=== PATIENT | male | born 1970 | race Caucasian/White ===

== ENCOUNTER 2024-12-15 08:05 | Emergency (ER) | payer BC, SELFPAY ==
[2024-12-15 08:06] VITALS: BMI 61.9
[2024-12-15 08:32] VITALS: BP 162/98; PULSE 100; RESP 18; TEMP 37; O2SAT 95
--- NOTE | 2024-12-15 08:40 | PD.EDRME ---
Rapid Medical Screening Exam RME Arrival date/time: 12/15/24 08:05 54-year-old male with no known medical history presents to the emergency room with a chief complaint of tenderness, warmth, drainage to his right thigh x 3 days I have greeted and performed a focused initial assessment of this patient. A comprehensive ED assessment and evaluation of the patient, analysis of all test results, and completion of the medical decision making process will be conducted by additional ED providers. Chief Complaint: Skin/Abscess/Foreign Body Time Seen by Provider: 12/15/24 08:29 Vital signs: Vital Signs Temperature 98.6 F 12/15/24 08:32 Pulse Rate 100 12/15/24 08:32 Respiratory Rate 18 12/15/24 08:32 Blood Pressure 162/98 H 12/15/24 08:32 Pulse Oximetry (%) 95 12/15/24 08:32 Oxygen Delivery Method Room Air 12/15/24 08:32 Vital signs reviewed by provider: Yes Exam: Erythemic, rough, warmth to the touch area to the right thigh Clinical Impression: Cellulitis/abscess/folliculitis
[2024-12-15] MEDS: CEFOXITIN 2 GM in SODIUM CHLORIDE 0.9% (Popper) 50 ML IV (09:27)
[2024-12-15] MEDS: LIDOCAINE HCL 1% 20 ML VIAL INFL (09:28)
[2024-12-15] MEDS: ONDANSETRON INJ 2 MG/ML INJ 2 ML 4 MG IVP (09:29)
[2024-12-15] MEDS: KETOROLAC INJ 30 MG/ML VIAL IVP (09:29)
[2024-12-15] MEDS: MORPHINE SULF INJ 4 MG/ML VIAL IVP (09:29)
[2024-12-15 10:22] VITALS: BP 131/87; PULSE 90; RESP 18; TEMP 36.9; O2SAT 93
[2024-12-15 11:48] VITALS: BP 130/72; PULSE 90; RESP 18; TEMP 36.9; O2SAT 94
--- NOTE | 2024-12-15 12:35 | EDNOTE_ITS ---
ED Skin Abcess FB-RME/HPI General Chief complaint: Skin/Abscess/Foreign Body Stated complaint: BOIL TO RIGHT THIGH FOR 3 DAYS Time Seen by Provider: 12/15/24 08:29 Arrival date/time: 12/15/24 08:05 Limitations: no limitations RME / HPI RME / HPI narrative: 12/15/24 08:05 54-year-old male with no known medical history presents to the emergency room with a chief complaint of tenderness, warmth, drainage to his right thigh x 3 days I have greeted and performed a focused initial assessment of this patient. A comprehensive ED assessment and evaluation of the patient, analysis of all test results, and completion of the medical decision making process will be conducted by additional ED providers. DR. COLON MAIN ED EVALUATION: 54 year old male with history of hypertension presents to the ED for evaluation of an area of tenderness, swelling, redness and increased warmth to the right upper thigh beginning 3 days ago. Reports symptoms are progressively worsening and accompanied by drainage from the site. No injuries to the area. No fevers or chills. No other associated symptoms or complaints. Exam: Erythemic, rough, warmth to the touch area to the right thigh Impression: Cellulitis/abscess/folliculitis Related Data Home Medications ?Medication ?Instructions ?Recorded ?Confirmed ibuprofen 400 mg tablet 400 mg PO DAILY 03/29/23 Previous Rx's ?Medication ?Instructions ?Recorded enalapril maleate 2.5 mg tablet 2.5 mg PO QDAY #30 tab s 03/29/23 (Vasotec) cephalexin 500 mg capsule 500 mg PO Q6H 10 days #40 ca ps 12/15/24 Allergies Allergy/AdvReac Type Severity Reaction Status Date / Time No Known Allergies Allergy Verified 12/15/24 08:08 Review of Systems Review of Systems Systems Reviewed: All systems reviewed, normal except as documented Past Medical History Past Medical History CARDIAC: Positive Cardiac Disorders (hypertension); Negative Congestive Heart Failure RESPIRATORY: Negative Chronic Obstructive Pulmonary Disease (COPD) or Asthma GENITOURINARY: Negative Renal Disease ENDOCRINE: Negative Diabetes Mellitus Type 1 or Diabetes Mellitus Type 2 HEMATOLOGIC: Negative Sickle Cell Disease Social History SMOKING STATUS: Never smoker ED Exam General Limitations: Present no limitations General appearance: Present alert, in no apparent distress and obese Head Head exam: Present atraumatic Eye Eye exam: Present normal appearance and EOMI ENT ENT exam: Present normal exam, normal oropharynx and mucous membranes moist Neck Neck exam: Present normal inspection, full ROM and trachea midline Chest Chest inspection: Present normal inspection and symmetric chest wall rise Respiratory Respiratory exam: Present normal lung sounds bilaterally Cardiovascular Cardiovascular exam: Present regular rate, normal rhythm and normal heart sounds Abdominal Exam Abdominal exam: Present soft and normal bowel sounds Extremities Exam Extremities exam: Present full ROM and other (Upper medial rigth thigh with mild erythema, centrally there was an 8cm x 8cm firm indurated area, nonfluctuant with small area of oozing puss) Back Exam Back exam: Present normal inspection and full ROM Neurological Exam Neurological exam: Present alert, oriented X3 and CN II-XII intact Psychiatric Psychiatric exam: Present normal affect and normal mood Skin Skin exam: Present warm, dry, intact and normal color Course Quality Measures none Orders Category Date Time Status Insert [Insert IV] NOW Care 12/15/24 08:58 Completed Wound Culture and Gram Stain Stat Lab 12/15/24 11:44 Received Cefoxitin [Mefoxin] 2 gm Med 12/15/24 08:59 Discontinued SODIUM CHLORIDE 0.9% (Popper) [Ns 0.9% (P)] 50 ml IV X1 Ketorolac Inj [Toradol Inj] Med 12/15/24 08:59 Discontinued 30 mg IVP X1 ONE Lidocaine 1% 20 ml [Xylocaine 1% 20 ML] Med 12/15/24 08:57 Discontinued 20 ml INFL X1 ONE Morphine* Inj Med 12/15/24 08:59 Discontinued 4 mg IVP X1 ONE Ondansetron Inj [Zofran Inj] Med 12/15/24 08:59 Discontinued 4 mg IVP X1 ONE Vital Signs Vital signs: Vital Signs Temperature 98.6 F 12/15/24 08:32 Pulse Rate 100 12/15/24 08:32 Respiratory Rate 18 12/15/24 08:32 Blood Pressure 162/98 H 12/15/24 08:32 Pulse Oximetry (%) 95 12/15/24 08:32 Oxygen Delivery Method Room Air 12/15/24 08:32 Pulse ox is 95% on room air which is adequate. PROCEDURES: Abscess I/D Site: lower extremity Side (if applicable): right (thigh ) Sedation/analgesia: none Local Anesthetic: lidocaine 1% Amount of anesthesia used (mL): 10 Technique: other (incised with #15 blade) Amount of fluid expressed (mL): 10 Irrigation: Yes Packing used?: iodoform (1/4 inch ) Complications: other (No complications. Wound culture was obtained and sent to lab. ) Skin / Abscess / Foreign Body MDM Narrative MDM Narrative:: Narcisa Cho am scribing for and in the presence of Dr. Colon. Patient data External records reviewed:: [facility] previous records Clinical information provided by:: patient Social determinants that could affect healthcare access:: none Patient has the following chronic illnesses:: Hypertension How is presenting disease/condition affected by chronic disease/condition?: uneffected by Evaluation data The following diagnostics were reviewed and interpreted by me:: other (specify) (No diagnostics ordered ) Lab and/or radiology exams considered but not ordered:: None Interpretation Summary: N/A Medications / Prescriptions Medications or Prescriptions considered but not ordered:: None Medication administrations:: Medication Administration History Discontinued Medications Cefoxitin Sodium 2 gm/ Sodium (Chloride) 50 mls @ 100 mls/hr IV X1 ONE Stop: 12/15/24 09:28 Last Infusion: 12/15/24 11:06 Dose: Infused Documented By: Admin: 12/15/24 09:27 Dose: 100 mls/hr Documented By: ANTWON Ketorolac Tromethamine (Ketorolac Inj 30 Mg/Ml Vial) 30 mg IVP X1 ONE Stop: 12/15/24 09:00 Last Admin: 12/15/24 09:29 Dose: 30 mg Documented By: ANTWON Lidocaine HCl (Lidocaine Hcl 1% 20 Ml Vial) 20 ml INFL X1 ONE Stop: 12/15/24 08:58 Last Admin: 12/15/24 09:28 Dose: 20 ml Documented By: ANTWON Morphine Sulfate (Morphine Sulf Inj 4 Mg/Ml Vial) 4 mg IVP X1 ONE Stop: 12/15/24 09:00 Last Admin: 12/15/24 09:29 Dose: 4 mg Documented By: ANTWON Ondansetron HCl (Ondansetron Inj 2 Mg/Ml Inj 2 Ml) 4 mg IVP X1 ONE; Protocol Stop: 12/15/24 09:00 Last Admin: 12/15/24 09:29 Dose: 4 mg Documented By: ANTWON See above Consultations Consultation(s) initiated? (list below): No Diagnosis Skin/Abscess Differential Diagnosis: abscess of skin or subcutaneous tissue, cellulitis, insect bites and other (boil, abscess ) Most likely diagnosis given after review of the tests above:: Abscess of skin Admission Indicated Admission indicated?: not indicated Explain why admission is indicated or not indicated:: With no condition needing emergent intervention, there was no indication for admission. Admission Request Was there a request for admission?: No Disposition Plan Disposition Plan: Discharge Discharge Attestation Discharge Attestation: The patient and all family members were given an opportunity to ask questions and understood the discharge instructions. Discharge instructions specifically effects, indications for sooner follow up or return to the emergency department, and the expected course of current diagnosis. Patient condition: Stable Discharge Plan Plan Patient Disposition: HOME (Self Care) Patient condition on transfer: Stable Prescriptions/Referrals Prescriptions/Med Rec: New cephalexin 500 mg capsule 500 mg PO Q6H 10 Days Qty: 40 0RF No Action ibuprofen 400 mg Tablet 400 mg PO DAILY enalapril maleate [Vasotec] 2.5 mg tablet 2.5 mg PO QDAY Qty: 30 0RF Referrals: No Primary/Family,Physician [Primary Care Provider] - In 1 week Problem List Clinical Impression: Abscess of skin or subcutaneous tissue Patient/Caregiver Discharge Instructions Discharge Activity: activity as tolerated Education Materials: ED Abscess Antibiotic ..., ED Abscess, Incision And Drainage Additional Instructions: Rest for 2 to 3 days. Change her dressing daily. See your doctor in 2 days or return to the emergency department to check your abscess wound and decide if we need to change the packing. Take Tylenol 500 mg 1-2 every 6 hours along with Advil gelcaps 200 mg 2 capsules every 6 hours for pain. You can take these 2 medications together. Print Language: Surinamese Stand Alone Forms: Deborah Award Info., Patient Portal Info Letter
== END 2024-12-15 11:45 | disposition home or self-care (01) ==
PROVIDERS: Emergency Provider Family Medicine
DX: L02.415 Cutaneous abscess of right lower limb (principal); I10 Essential (primary) hypertension
CPT/HCPCS: 10060; 87070; 87077; 87186; 87205; 96365; 96366; 96374; 96375; 99283; J0694; J1885; J2270; J2405; J3490; J7050

== ENCOUNTER 2024-12-18 08:39 | Inpatient (IN) | payer BC, SELFPAY ==
[2024-12-18] VITALS (8 sets, daily range): BP systolic 156–180; BP diastolic 94–111; PULSE 77–86; RESP 18–97; TEMP 36.4–36.7; O2SAT 97–99; BMI 61.9; BMI 56.0
--- NOTE | 2024-12-18 09:03 | XR_ITS ---
Examination: CT abdomen with intravenous contrast CT pelvis with intravenous contrast 2-D coronal reconstructions 2-D sagittal reconstructions Date and time of exam: December 18, 2024, 1122 hours INDICATIONS: Redness swelling and pain involving the thigh and lower abdomen beginning 3 days ago. CTDI: vol (mGy) 27.6 DLP: (mGycm) 2171 Technique: Multiple axial sections of the abdomen and pelvis have been obtained. 64 slice high-resolution scanner used. 3 mm axial sections have been obtained, post intravenous injection 60 cc [id number] 2-D sagittal, coronal reconstructions obtained. Low dose protocols were performed. One or more of the following dose reduction techniques were used; automated exposure control, adjustment of the mA and/or KV according to patient size, use of iterative reconstruction technique. Findings: 4 mm pulmonary nodule right lower lobe Large retrocardiac gastric hernia 8 mm liver cyst Fatty infiltration throughout the liver No gallstones Spleen is not enlarged No peripancreatic edema No hydronephrosis or renal calculi Aorta normal size No pericecal inflammatory change No bowel obstruction No prostatomegaly Bladder intact Air-fluid collection poorly defined margins medial right thigh, 24 mm in thickness, AP dimension 9.2 cm, cephalocaudad dimension 13 cm IMPRESSION: Soft tissue focus of infection in the medial upper right thigh, 9.2 x 2.4 x 13 cm
--- NOTE | 2024-12-18 09:04 | PD.EDRME ---
Rapid Medical Screening Exam [facility], [facility] Arrival date/time: 12/18/24 08:39 54-year-old male with no known medical history presents to the emergency room with a chief complaint of multiple abscesses to his right thigh. Patient was seen here last week in the emergency room and had one of the abscesses drained. Patient states that multiple different abscesses have now formed in the same area. I have greeted and performed a focused initial assessment of this patient. A comprehensive ED assessment and evaluation of the patient, analysis of all test results, and completion of the medical decision making process will be conducted by additional ED providers. Chief Complaint: Skin/Abscess/Foreign Body Time Seen by Provider: 12/18/24 08:42 Vital signs: Vital Signs Temperature 98 F 12/18/24 08:48 Pulse Rate 86 12/18/24 08:48 Respiratory Rate 18 12/18/24 08:48 Blood Pressure 167/94 H 12/18/24 08:48 Pulse Oximetry (%) 99 12/18/24 08:48 Oxygen Delivery Method Room Air 12/18/24 08:48 Vital signs reviewed by provider: Yes Exam: Right thigh erythema, induration, warmth, roughness. GCS 15 and oriented x 3 Clinical Impression: Cellulitis/abscess of skin or subcutaneous tissue
[2024-12-18 09:24] LABS: Basophils # (Auto) 0.1 Thou/mm3 (0.0-0.2); Basophils % (Auto) 1 % (0-2.5); Eosinophils # (Auto) 0.3 Thou/mm3 (0.0-0.5); Eosinophils % (Auto) 3 % (0-10); Hematocrit 44.8 % (41.0-53.0); Hemoglobin 15.6 g/dL (13.5-16.0); Immature Granulocytes Auto 0.16 Thou/mm3 (0.00-0.00); Lymphocytes # (Auto) 1.5 Thou/mm3 (1.0-4.8); Lymphocytes % (Auto) 15 % (10-50); Mean Corpuscular HGB Conc 34.8 g/dl (31.0-37.0); Mean Corpuscular Hemoglobin 29.4 pg (25.0-35.0); Mean Corpuscular Volume 85 fL (80-100); Monocytes # (Auto) 0.8 Thou/mm3 (0.0-0.8); Monocytes % (Auto) 8 % (0-12); Neutrophils # (Auto) 7.1 Thou/mm3 (1.8-7.7); Neutrophils % (Auto) 72 % (37-80); Nucleated Red Blood Cell # 0.00 Thou/mm3 (0.00-0.00); Nucleated Red Blood Cell % 0 /100 WBC (0); Platelet Count 320 Thou/mm3 (140-440); RDW Standard Deviation 36.5 fL (35.1-43.9); Red Blood Count 5.30 Miln/mm3 (4.50-5.90); White Blood Count 9.9 Thou/mm3 (3.8-10.6)
[2024-12-18 09:52] LABS: Alanine Aminotransferase 24 U/L (10-49); Albumin, Serum 4.1 gm/dL (3.5-5.0); Albumin/Globulin Ratio 1.6 (1.2-2.2); Alkaline Phosphatase 120 U/L (46-116); Anion Gap 7 (7-16); Aspartate Amino Transferase 19 U/L (0-34); BUN/Creatinine Ratio 14 Ratio (12-20); Bilirubin,Total 0.5 mg/dL (0.3-1.2); Blood Urea Nitrogen 11 mg/dL (9-23); Calcium 9.2 mg/dL (8.3-10.6); Calcium (Corrected) 9.2 mg/dL (8.5-10.1); Carbon Dioxide 32.7 mMol/L (20.0-31.0); Chloride 94 mMol/L (98-107); Creatinine (Component) 0.8 mg/dL (0.6-1.3); Estimated Creatinine Clearance 203.5 mL/min (>60); Globulin 2.6 gm/dL (2.3-3.5); Lipase 31 U/L (12-53); Osmolality,Calculated 287 (275-295); Potassium 3.9 mMol/L (3.4-5.1); Sodium 134 mMol/L (136-145); Total Protein 6.7 gm/dL (5.7-8.2); eGFR > 60 See Note
[2024-12-18 10:06] LABS: Collection Type, Urine Clean Catch; WBC,Urine 0 /hpf (0-5)
[2024-12-18 10:32] LABS: Bilirubin,Urine Negative (Negative); Blood,Urine Negative (Negative); Clarity,Urine Clear (Clear/Hazy); Color,Urine Lt-Yellow (Lt Yel-Yel); Glucose, Urine 4+ (Negative); Ketones,Urine 1+ (Negative); Leukocyte Esterase,Urine Negative (Negative); Nitrite,Urine Negative (Negative); PH,Urine 6.5 (5.0-7.0); Protein,Urine Negative (Neg - Trace); RBC,Urine 3 /hpf (0-3); Specific Gravity,Urine 1.040 (1.001-1.035); Squamous Epithelial Cell,Urine 1 /hpf (0-5); Urobilinogen,Urine Negative mg/dL (0.0-1.0)
[2024-12-18 10:39] LABS: Glucose 466 mg/dL (74-106)
--- NOTE | 2024-12-18 13:28 | PC.NURSE ---
Pt. to bed 11, pt. here from home for abscess to inside right upper thigh X 1 week, pt. states he went to work this morning and sat on a stool pt. states then he heard a pop and he states abscess drained all over the floor, pt. states he cleaned it up went home and cleaned up and then came here. Pt. states abscess is painful. No s/s of distress.
[2024-12-18] MEDS: IBUPROFEN TAB 600 MG TABLET PO (16:12)
--- NOTE | 2024-12-18 16:35 | PC.NURSE ---
[place] resident who is working with Dr. Chirinos is bedside talking to pt.
[2024-12-18] MEDS: MORPHINE SULF INJ 4 MG/ML VIAL IVP (16:54)
--- NOTE | 2024-12-18 16:59 | PC.NURSE ---
Dr. Chirinos is bedside and [place] resident to do I&D on pt. right upper inner thigh.
--- NOTE | 2024-12-18 17:30 | PD.SURCONS ---
HPI Consult details History of present illness: 54M with HTN, DMII, morbid obesity presenting with R thigh abscess. Pt reports feeling pain to the area for the past few days, he underwent bedside I&D in ER on 12/15 and was also given PO antibiotics which he is still taking. Today at work he noticed increased drainage onto his pants prompting him to seek care again in ER where CT showed a fluid collection up to 13cm Review of Systems Review of Systems ROS Unobtainable: All systems reviewed & no additional complaints except as documented Meds Home Medications and Allergies Home Medications ?Medication ?Instructions ?Recorded ?Confirmed ?Type ibuprofen 400 mg tablet 400 mg PO DAILY 03/29/23 03/29/23 History Allergies Allergy/AdvReac Type Severity Reaction Status Date / Time No Known Allergies Allergy Verified 12/18/24 08:42 Exam Vital Signs Temp Pulse Resp BP Pulse Ox O2 Del Method 97.9 F 81 20 180/103 H 98 Room Air 12/18/24 16:34 12/18/24 16:34 12/18/24 16:34 12/18/24 16:34 12/18/24 16:34 12/18/24 16:34 Constitutional Constitutional: no acute distress Routine Respiratory Exam Respiratory: Present no resp distress Routine Extremities Exam Comments: right medial thigh induration, the previously made incision is visualized and thin yellow fluid is expressed when palpated Results Results: Laboratory Laboratory results: results reviewed Results: Imaging Imaging narrative: CT reviewed Assessment & Plan Plan 54M with HTN, DMII, morbid obesity presenting with R thigh abscess s/p I&D in ER on 12/15. As it is already draining what looks like pus and pt states he tolerated bedside I&D very well, I will attempt to extend the incision and probe it at bedside to allow for further drainage. I explained that the collection does look somewhat deep on CT so that if I do not express more pus with this procedure I would recommend requesting IR evaluation for possible percutaneous drainage. Pt expressed understanding and is agreeable with this plan
--- NOTE | 2024-12-18 17:34 | PD.EDSKIN ---
ED Skin Abcess FB-RME/HPI General Chief complaint: Skin/Abscess/Foreign Body Stated complaint: ANOTHER ABCESS RIGHT THIGH x 3 DAYS Time Seen by Provider: 12/18/24 08:42 Arrival date/time: 12/18/24 08:39 RME / HPI RME / HPI narrative: 12/18/24 08:39 54-year-old male with no known medical history presents to the emergency room with a chief complaint of multiple abscesses to his right thigh. Patient was seen here last week in the emergency room and had one of the abscesses drained. Patient states that multiple different abscesses have now formed in the same area. I have greeted and performed a focused initial assessment of this patient. A comprehensive ED assessment and evaluation of the patient, analysis of all test results, and completion of the medical decision making process will be conducted by additional ED providers. DR. LEDEZMA MAIN ED EVALUATION 54 year old male with history of hypertension and poorly controlled diabetes presents to the ED for evaluation of right inner thigh drainage. Patient states 6 days ago he noted tenderness, swelling, redness and increased warmth to the right upper thigh and evaluated here. States in the ED he had an abscess drained and discharged home with antibiotics. Reportedly has taken the antibiotics. States today while at work he sat on a barstool and while doing so noted to have drainage from a new area on the right thigh, prompting return to ED. No fevers or chills. No other associated symptoms or complaints. Exam: Right thigh erythema, induration, warmth, roughness. GCS 15 and oriented x 3 Impression: Cellulitis/abscess of skin or subcutaneous tissue Related Data Home Medications ?Medication ?Instructions ?Recorded ?Confirmed ibuprofen 400 mg tablet 400 mg PO DAILY 03/29/23 03/29/23 Previous Rx's ?Medication ?Instructions ?Recorded enalapril maleate 2.5 mg tablet 2.5 mg PO QDAY #30 tabs 03/29/23 (Vasotec) cephalexin 500 mg capsule 500 mg PO Q6H 10 days #40 caps 12/15/24 Allergies Allergy/AdvReac Type Severity Reaction Status Date / Time No Known Allergies Allergy Verified 12/18/24 08:42 Review of Systems Review of Systems Systems Reviewed: All systems reviewed, normal except as documented Past Medical History Past Medical History CARDIAC: Negative Cardiac Disorders or Congestive Heart Failure RESPIRATORY: Negative Chronic Obstructive Pulmonary Disease (COPD) or Asthma GENITOURINARY: Negative Renal Disease ENDOCRINE: Negative Diabetes Mellitus Type 1 or Diabetes Mellitus Type 2 HEMATOLOGIC: Negative Sickle Cell Disease Social History SMOKING STATUS: Never smoker ED Exam Narrative Physical exam: GENERAL APPEARANCE:? alert and oriented x 4, well-developed, well-nourished, no acute distress HEENT: normocephalic, atraumatic NECK: supple LUNGS: no respiratory distress, normal effort HEART: good peripheral perfusion ABDOMEN: non distended EXTREMITIES: The inner right thigh with induration, redness, tenderness, multiple areas of abscess's NEUROLOGIC: awake; alert and oriented x4; cranial nerves II-XII grossly intact PSYCHIATRIC:? appropriate mood and affect SKIN: warm, dry, normal color; no rashes Course Course Course Narrative: I spoke with surgeon Dr. Chirinos who states she will come evaluate the patient in the ED. Surgeon Dr. Hodges evaluated the patient in the ED and states she will try and open the abscess here. RN reports surgeon Dr. Chirinos attempted to drain the abscess though unable to. I spoke with Dr. Chirinos who is requesting admission to hospitalist team and have IR place a drain. She agrees to consult. I spoke with hospitalist team A for admission. Quality Measures none Orders Category Date Time Status CT Screening NOW Care 12/18/24 09:[address] abdomen pelvis w con Stat Exams 12/18/24 09:03 Completed CBC Stat Lab 12/18/24 09:07 Completed CMP [Comprehensive Metabolic Panel] Stat Lab 12/18/24 09:07 Completed Lipase Stat Lab 12/18/24 09:07 Completed UA [Urinalysis] Stat Lab 12/18/24 09:51 Completed Doxycycline [Vibramycin] Med 12/18/24 15:54 Discontinued 100 mg PO X1 ONE Ibuprofen Tab [Motrin Tab] Med 12/18/24 15:53 Discontinued 600 mg PO X1 ONE Morphine* Inj Med 12/18/24 16:47 Discontinued 4 mg IVP X1 ONE Vital Signs Vital signs: Vital Signs Temperature 98 F 12/18/24 08:48 Pulse Rate 86 12/18/24 08:48 Respiratory Rate 18 12/18/24 08:48 Blood Pressure 167/94 H 12/18/24 08:48 Pulse Oximetry (%) 99 12/18/24 08:48 Oxygen Delivery Method Room Air 12/18/24 08:48 Pulse ox is 99% on room air which is adequate. Skin / Abscess / Foreign Body MDM Narrative MDM Narrative:: Narcisa Cho, antelmo scribing for and in the presence of Dr. Ledezma. Patient data External records reviewed:: [facility] previous records Clinical information provided by:: patient Social determinants that could affect healthcare access:: none Patient has the following chronic illnesses:: Poorly controlled diabetes How is presenting disease/condition affected by chronic disease/condition?: exacerbated by Evaluation data The following diagnostics were reviewed and interpreted by me:: lab results and radiology exam(s) Lab and/or radiology exams considered but not ordered:: None Interpretation Summary: Ordering Physician: Freddie Brasher Date of Service: 12/18/24 Procedure(s): CT abdomen pelvis w con Accession Number(s): [id number] cc: Freddie Brasher; Galindo Gonzalez MD; NO PRIMARY/FAMILY,PHYSICIAN~ Examination: CT abdomen with intravenous contrast CT pelvis with intravenous contrast 2-D coronal reconstructions 2-D sagittal reconstructions Date and time of exam: December 18, 2024, 1122 hours INDICATIONS: Redness swelling and pain involving the thigh and lower abdomen beginning 3 days ago. CTDI: vol (mGy) 27.6 DLP: (mGycm) 2171 Technique: Multiple axial sections of the abdomen and pelvis have been obtained. 64 slice high-resolution scanner used. 3 mm axial sections have been obtained, post intravenous injection 60 cc [id number] 2-D sagittal, coronal reconstructions obtained. Low dose protocols were performed. One or more of the following dose reduction techniques were used; automated exposure control, adjustment of the mA and/or KV according to patient size, use of iterative reconstruction technique. Findings: 4 mm pulmonary nodule right lower lobe Large retrocardiac gastric hernia 8 mm liver cyst Fatty infiltration throughout the liver No gallstones Spleen is not enlarged No peripancreatic edema No hydronephrosis or renal calculi Aorta normal size No pericecal inflammatory change No bowel obstruction No prostatomegaly Bladder intact Air-fluid collection poorly defined margins medial right thigh, 24 mm in thickness, AP dimension 9.2 cm, cephalocaudad dimension 13 cm IMPRESSION: Soft tissue focus of infection in the medial upper right thigh, 9.2 x 2.4 x 13 cm Dictated By: Galindo Gonzalez MD Signed By: <Electronically signed by Galindo Gonzalez MD in OV> 12/18/24 1148 Medications / Prescriptions Medications or Prescriptions considered but not ordered:: None Medication administrations:: Medication Administration History Discontinued Medications Doxycycline Hyclate (Doxycycline 100 Mg Tablet) 100 mg PO X1 ONE Stop: 12/18/24 15:55 Last Admin: 12/18/24 16:35 Dose: Not Given Documented By: ARF Non-Admin Reason: Discontinued Ibuprofen (Ibuprofen Tab 600 Mg Tablet) 600 mg PO X1 ONE Stop: 12/18/24 15:54 Last Admin: 12/18/24 16:12 Dose: 600 mg Documented By: ARF Morphine Sulfate (Morphine Sulf Inj 4 Mg/Ml Vial) 4 mg IVP X1 ONE Stop: 12/18/24 16:48 Last Admin: 12/18/24 16:54 Dose: 4 mg Documented By: ED See above Consultations Consultation(s) initiated? (list below): Yes Consultation #1 (Physician, Specialty, Details): See course Diagnosis Skin/Abscess Differential Diagnosis: abscess of skin or subcutaneous tissue, cellulitis and insect bites Most likely diagnosis given after review of the tests above:: Abscess of right inner thigh Cellulitis Admission Indicated Admission indicated?: indicated Admission Request Was there a request for admission?: Yes Admission Attestation Admission request attestation: Discussed case with [] from Hospitalist service regarding admission. Discussed patients ED course, exam findings, labs, and radiology results. The Hospitalist [agrees,declines] to accept the patient for admission. Disposition Plan Disposition Plan: Admit Discharge Plan Plan Patient Disposition: Admit Acute Care w/in Hospital Prescriptions/Referrals Prescriptions/Med Rec: No Action ibuprofen 400 mg Tablet 400 mg PO DAILY enalapril maleate [Vasotec] 2.5 mg tablet 2.5 mg PO QDAY Qty: 30 0RF cephalexin 500 mg capsule 500 mg PO Q6H 10 Days Qty: 40 0RF Referrals: No Primary/Family,Physician [Primary Care Provider] - In 1 week Problem List Clinical Impression: Cellulitis, Abscess of right thigh Patient/Caregiver Discharge Instructions Print Language: Beninese Stand Alone Forms: Deborah Award Info., Patient Portal Info Letter
--- NOTE | 2024-12-18 17:36 | PD.SURPROC ---
PROCEDURES: Procedure Comment Procedure Comment: Informed consent obtained Pt premedicated with morphine 4mg IV Timeout performed Previous RLE thigh incision extended medially with #11 blade Blood returned, wound probed with no expression of pus Wound packed for hemostasis and covered with gauze and abdominal pad Will recommend IR evaluation for possible percutaneous drainage if accessible Abscess I/D Site: lower extremity Side (if applicable): right Sedation/analgesia: other (Morphine 4mg) Technique: incised with #11 blade (Previous incision extended medially with #11 blade) Amount of fluid (mL): 10 Irrigation: Yes Packing used?: plain
--- NOTE | 2024-12-18 18:07 | ESHP_ITS ---
<Statement entered by Paresh Mariscal MD - 01/01/25 15:18> I reviewed above note and agree with findings and plans. I have also personally examined the patient with medicine team and went over assessment and plan with medical team including pr internship and resident physician. Documentation for date of: 12/18/24 HPI History of Present Illness Chief complaint: Right leg pain and drainage x 1 week History of present illness: Patient is a 54-year-old male with past medical history of hypertension who presented to the ED on 12/18/2024 with right upper leg tenderness, warmth, and drainage which the patient states he first noticed about 1 week ago. He denies any known trauma, cuts, or injuries to the leg to cause the wound. 3 days ago, the patient came to the ED and provider performed a bedside I&D with 10 ml fluid expressed. Abscess culture from that time grew pansensitive strep agalactiae. Patient was prescribed a 10-day course of cephalexin and he has been taking it since the visit Wednesday. However today when he went to work he noticed that the abscess seemed to burst and have significant drainage while seated. Patient then came to the hospital. He reports subjective fevers last week but not in the last few days. He denies any other symptoms. Patient does not have a PCP and has not seen a doctor in 3 years. He denies any prior medical history. ED Course: -Initial vitals were 167/94, HR 86, RR 18, Temp 98, 99% on room air -Labs significant for glucose 466, hyperglycemic hyponatremia 134, chloride 94, CO2 32.7, mildly elevated alk phos 120 -UA showed 4+ glucose, 1+ ketones, negative for leukocyte esterase -CT abdomen/pelvis with contrast showed soft tissue focus of infection in the medial upper right thigh, 9.2 x 2.4 x 13 cm -In the ED, patient was given ibuprofen 600 mg PO x1, morphine 4 mg IV x1 -General surgery Dr. Chirinos was consulted and attempted bedside debridement however abscess seemed too deep to express any pus, recommended IR evaluation and percutaneous drainage -Patient was admitted for further IR and possible surgical drainage of the right upper leg abscess Review of Systems Review of systems otherwise negative except what is mentioned above. Past Medical History Past Medical History Comments PMH COMMENT: Past Medical History: None reported Family History: Positive for family history of diabetes Surgical History: None Social History: Denies history of smoking, denies current alcohol use, denies recreational drug use. Lives alone. Current Medications: None (Source: Patient) Allergies: No known drug allergies Exam Vital Signs Temp Pulse Resp BP Pulse Ox O2 Del Method 97.9 F 81 20 180/103 H 98 Room Air 12/18/24 16:34 12/18/24 16:34 12/18/24 16:34 12/18/24 16:34 12/18/24 16:34 12/18/24 16:34 Narrative Exam Physical Exam General: Awake and in no acute distress. Conversational and non-toxic appearing. HEENT: Normocephalic, atraumatic, mucous membranes moist. Heart: Regular rate and rhythm, normal S1 and S2, no murmurs. Lungs: Clear to auscultation with no wheezing or crackles. Abdomen: Morbidly obese, soft, nondistended, nontender, positive bowel sounds. ?No guarding or rebound tenderness. Neurologic: Alert and oriented x3, no gross neurological deficit, and patient able to move all 4 extremities. Extremities: Indurated and erythematous area of skin medial right upper leg, lumpy, central area with dry blood where drainage attempted Skin: No rash or ecchymoses. Results: Labs 12/19/24 04:39 12/19/24 04:39 Labs: Short CBC 12/18/24 Range/Units 09:07 WBC 9.9 (3.8-10.6) Thou/mm3 Hgb 15.6 (13.5-16.0) g/dL Hct 44.8 (41.0-53.0) % Plt Count 320 (140-440) Thou/mm3 BMP 12/18/24 09:07 Sodium 134 L Potassium 3.9 Chloride 94 L Carbon Dioxide 32.7 H BUN 11 Creatinine 0.8 Glucose 466 H* Calcium 9.2 Liver Function 12/18/24 Range/Units 09:07 Total Bilirubin 0.5 (0.3-1.2) mg/dL AST 19 (0-34) U/L ALT 24 (10-49) U/L Alkaline Phosphatase 120 H (46-116) U/L Albumin 4.1 (3.5-5.0) gm/dL Urine 12/18/24 Range/Units 09:51 Urine Color Lt-Yellow (Lt Yel-Yel) Urine Clarity Clear (Clear/Hazy) Urine pH 6.5 (5.0-7.0) Ur Specific Pringle 1.040 H (1.001-1.035) Urine Protein Negative (Neg - Trace) Urine Glucose (UA) 4+ A (Negative) Quality Measures Quality Measures none Medications Home Medications and Allergies Home Medications ?Medication ?Instructions ?Recorded ?Confirmed ?Type ibuprofen 400 mg tablet 400 mg PO DAILY 03/29/23 History Allergies Allergy/AdvReac Type Severity Reaction Status Date / Time No Known Allergies Allergy Verified 12/18/24 08:42 Visit Medications Discontinued Medications Doxycycline Hyclate (Doxycycline 100 Mg Tablet) 100 mg PO X1 ONE Stop: 12/18/24 15:55 Last Admin: 12/18/24 16:35 Dose: Not Given Ibuprofen (Ibuprofen Tab 600 Mg Tablet) 600 mg PO X1 ONE Stop: 12/18/24 15:54 Last Admin: 12/18/24 16:12 Dose: 600 mg Morphine Sulfate (Morphine Sulf Inj 4 Mg/Ml Vial) 4 mg IVP X1 ONE Stop: 12/18/24 16:48 Last Admin: 12/18/24 16:54 Dose: 4 mg Assessment & Plan Plan 54-year-old male with past medical history of hypertension who presented to the ED on 12/18/2024 with right upper leg tenderness, warmth, and drainage which the patient states he first noticed about 1 week ago, found to have right upper leg abscess which was not fully draining with bedside I&D, patient was admitted for IR management and possible further surgical debridement. #Right leg abscess Patient presented with non-healing right upper leg wound, which is hard, erythematous, and tender. Patient is morbidly obese and also found to have severe hyperglycemia, likely non-healing wound in the setting of uncontrolled diabetes. CT abdomen/pelvis with contrast showed soft tissue focus of infection in the medial upper right thigh, 9.2 x 2.4 x 13 cm. -General surgery consulted and following -Wound care consulted -IR abscess drainage scheduled for 12/19 morning -NPO after midnight -Started Zosyn 3.375 mg q6h -Started vancomycin pharmacy to dose -Pain management: Tylenol for mild pain, [place] for moderate pain, morphine for severe pain #Hyperglycemia #Newly diagnosed type 2 diabetes On admission initial glucose 466. A1c pending. Last one taken 6.4 in 2019. Patient does not have known history of diabetes. -Bedside blood glucose checks ACHS -Insulin lispro sliding scale step 1, adjusted as necessary -Insulin degludec 10 U HS starting now -Carb consistent low diet -Consulted lead installer -Diabetes education -A1c pending #Hypertension Likely essential hypertension, patient not on medications. On admission BP 180/103 -Started losartan 25 mg qday DVT prophylaxis: Lovenox 40 mg subQ GI prophylaxis: Not indicated Diet: Carb consistent low Mead: None Lines: Peripheral IV Antibiotics: Zosyn [12/18/2024- ], vancomycin [12/18/2024- ] CODE STATUS: FULL Reason for hospitalization: Patient plan of care was discussed with the attending physician, Dr. Mariscal. Veronika Henley, PGY-3
[2024-12-18 19:34] LABS: Glucose Estimated Average 306 mg/dL (80-131); Hemoglobin A1C 12.3 % Hgb (4.8-6.0)
[2024-12-18 19:39] LABS: Cardiac Risk Estimate 6.6 RATIO (4.0-6.7); Cholesterol 158 mg/dL (132-200); HDL Cholesterol 24 mg/dL (40-60); LDL Cholesterol,Calculated 104 mg/dL (0-130); Triglycerides 150 mg/dL (30-150)
[2024-12-18] MEDS: LOSARTAN POTASSIUM 25 MG TABLET PO (19:44)
[2024-12-18] MEDS: PIPER/TAZO 3.375 GM PREMIX 3.375 GM/50 ML BAG IV (19:45)
[2024-12-18] MEDS: INSULIN DEGLUDEC 5 UNIT/0.05 ML (PER 5 UNITS) 10 UNIT SC (19:47)
[2024-12-18] MEDS: INSULIN LISPRO (AdmeLOG) 1 UNIT/0.01 ML UNIT SC (19:50)
[2024-12-18] MEDS: Vancomycin Inj 2,000 MG in SODIUM CHLORIDE 0.9% 500 ML 500 ML 150 MG IV (20:25)
[2024-12-19] VITALS (10 sets, daily range): BP systolic 150–190; BP diastolic 90–120; PULSE 58–88; RESP 18–92; TEMP 36–36.8; O2SAT 92–95; BMI 56.3
[2024-12-19] MEDS: INSULIN LISPRO (AdmeLOG) 1 UNIT/0.01 ML UNIT SC ×5 (00:08→23:44)
[2024-12-19] MEDS: PIPER/TAZO 3.375 GM PREMIX 3.375 GM/50 ML BAG IV ×4 (00:12→17:43)
[2024-12-19 05:51] LABS: Basophils # (Auto) 0.1 Thou/mm3 (0.0-0.2); Basophils % (Auto) 1 % (0-2.5); Eosinophils # (Auto) 0.3 Thou/mm3 (0.0-0.5); Eosinophils % (Auto) 3 % (0-10); Hematocrit 41.1 % (41.0-53.0); Hemoglobin 13.9 g/dL (13.5-16.0); Immature Granulocytes Auto 0.21 Thou/mm3 (0.00-0.00); Lymphocytes # (Auto) 1.9 Thou/mm3 (1.0-4.8); Lymphocytes % (Auto) 21 % (10-50); Mean Corpuscular HGB Conc 33.8 g/dl (31.0-37.0); Mean Corpuscular Hemoglobin 29.2 pg (25.0-35.0); Mean Corpuscular Volume 86 fL (80-100); Monocytes # (Auto) 1.0 Thou/mm3 (0.0-0.8); Monocytes % (Auto) 11 % (0-12); Neutrophils # (Auto) 5.3 Thou/mm3 (1.8-7.7); Neutrophils % (Auto) 61 % (37-80); Nucleated Red Blood Cell # 0.00 Thou/mm3 (0.00-0.00); Nucleated Red Blood Cell % 0 /100 WBC (0); Platelet Count 320 Thou/mm3 (140-440); RDW Standard Deviation 37.3 fL (35.1-43.9); Red Blood Count 4.76 Miln/mm3 (4.50-5.90); White Blood Count 8.8 Thou/mm3 (3.8-10.6)
[2024-12-19 06:19] LABS: Alanine Aminotransferase 21 U/L (10-49); Albumin, Serum 3.7 gm/dL (3.5-5.0); Albumin/Globulin Ratio 1.6 (1.2-2.2); Alkaline Phosphatase 84 U/L (46-116); Anion Gap 7 (7-16); Aspartate Amino Transferase 16 U/L (0-34); BUN/Creatinine Ratio 10 Ratio (12-20); Bilirubin,Total 0.4 mg/dL (0.3-1.2); Blood Urea Nitrogen 8 mg/dL (9-23); Calcium 8.9 mg/dL (8.3-10.6); Calcium (Corrected) 9.1 mg/dL (8.5-10.1); Carbon Dioxide 33.9 mMol/L (20.0-31.0); Chloride 97 mMol/L (98-107); Creatinine (Component) 0.8 mg/dL (0.6-1.3); Estimated Creatinine Clearance 191.1 mL/min (>60); Globulin 2.3 gm/dL (2.3-3.5); Glucose 282 mg/dL (74-106); Magnesium 1.5 mg/dL (1.6-2.6); Osmolality,Calculated 283 (275-295); Phosphorous 4.4 mg/dL (2.4-5.1); Potassium 4.1 mMol/L (3.4-5.1); Sodium 138 mMol/L (136-145); Total Protein 6.0 gm/dL (5.7-8.2); eGFR > 60 See Note
--- NOTE | 2024-12-19 07:54 | ECHO_ITS ---
Patient Info Name: Jackelin Zuniga Age: 54 years : 1970 Gender: Male Ht: 185 cm Wt: 193 kg BSA: 3.26 m2 BP: 173 / 90 mmHg HR: 77 bpm Exam Date: 12/19/2024 11:03 AM Admit Date: 12/18/2024 Site: [facility] Room Number: 365 Patient Status: I Exam Type: CA echo doppler complete Political Geographer: Kathie Aguillon Ordering Physician: Aguilar Person Study Info Indications r/o hf - Primary Location: [id number] Left Ventricular Outflow Tract Name Value Normal LVOT 2D LVOT Diameter 2.0 cm LVOT Doppler LVOT Peak Velocity 96 cm/s LVOT Mean Gradient 2 mmHg LVOT VTI 22 cm LVOT VTI/AV VTI Ratio 1.1 LVOT Stroke Volume 70 ml Pulmonic Valve Name Value Normal PV Doppler PV Peak Velocity 119 cm/s Mitral Valve Name Value Normal MV Doppler MV Decel Dare 390 cm/s2 MV PHT 58 ms MV Area (PHT) 3.8 cm2 4.0-5.0 MV Diastolic Function MV E Peak Velocity 78 cm/s MV A Peak Velocity 73 cm/s MV E/A 1.1 MV Annular TDI MV Lateral e' Velocity 10.4 cm/s MV E/e' (Lateral) 7.5 Tricuspid Valve Name Value Normal TV Regurgitation Doppler TR Peak Velocity 170 cm/s Estimated PAP/RSVP RA Pressure 8 mmHg <=5 PA Systolic Pressure 20 mmHg <36 RV Systolic Pressure 20 mmHg <36 Aortic Valve Name Value Normal AV 2D/MM AV Cusp Sep (MM) 1.4 cm AV Doppler AV Peak Velocity 119 cm/s AV Mean Gradient 4 mmHg AV VTI 21 cm AV Area (Cont Eq VTI) 3.4 cm2 >=3.0 AV Area (Cont Eq Emanuel) 2.5 cm2 AV DI (Emanuel) 0.81 AV Regurgitation 2D LVOT Area 3.1 cm2 Ventricles Name Value Normal LV Dimensions 2D/MM IVS Diastolic Thickness (2D) 1.1 cm 0.6-1.0 LVID Diastole (2D) 5.3 cm 4.2-5.8 LVIW Diastolic Thickness (2D) 1.2 cm 0.6-1.0 LVID Systole (2D) 3.4 cm 2.5-4.0 LVOT Diameter 2.0 cm LV Mass (2D Cubed) 241.96 g 88.00-224.00 LV Mass Index (2D Cubed) 74 g/m2 49-115 Relative Wall Thickness (2D) 0.45 <=0.42 IVS/LVIW Diastolic Thickness (2D) 0.92 0.00-1.50 LV Fractional Shortening/Ejection Fraction 2D/MM LV Fractional Shortening (2D) 36 % 25-43 LV EF (2D Teichholz) 65 % Atria Name Value Normal LA Dimensions LA Volume (4C A-L) 96 ml Left Ventricle Left ventricular chamber dimension is normal. Left ventricular systolic function is normal with visually estimated ejection fraction of 55-60%. There is mild concentric hypertrophy noted in the left ventricle. Left ventricular segmental wall motion is normal. There is grade I diastolic dysfunction in the left ventricle. Right Ventricle Right ventricular chamber dimension is normal. Right ventricular systolic function is normal. Left Atrium Left atrial chamber dimension is mildly enlarged. Right Atrium Right atrial chamber dimension is normal. Aortic Valve The aortic valve is trileaflet. There is no aortic valve sclerosis. There is no aortic valve stenosis with a peak velocity of 119 cm/s, mean gradient of 4 mmHg, and aortic valve area of 3.4 cm2. There is no aortic valve regurgitation. Pulmonic Valve The pulmonic valve is normal. There is no pulmonic valve stenosis. There is no pulmonic regurgitation. Mitral Valve The mitral valve has normal leaflets. There is no mitral valve stenosis. There is trace mitral valve regurgitation. Tricuspid Valve The tricuspid valve leaflets are normal. There is no tricuspid valve stenosis. There is trace tricuspid valve regurgitation. No pulmonary hypertension, estimated pulmonary arterial systolic pressure is 20 mmHg and systemic blood pressure of 173 mmHg in systole. Pericardium/Pleural The pericardium appears normal. There is no pericardial effusion. No pleural effusion visualized. Inferior Vena Cava Not well visualized inferior vena cava with >50% collapse upon inspiration consistent with normal right atrial pressure, 8 mmHg. Aorta The aortic measurements are indexed to age and body surface area. The aortic root at the sinus of Valsalva is not well visualized. The prox ascending aorta is not well visualized. Summary 1. Left ventricle size is normal and systolic function is normal. Estimated ejection fraction is 55-60%. There is grade I diastolic dysfunction. There is mild concentric hypertrophy noted. 2. Right ventricle chamber size is normal and systolic function is normal. Estimated RVSP is 20 mmHg. 3. There is trace mitral and tricuspid valve regurgitation. 4. The left atrium is mildly enlarged. The right atrium is normal. Report Signatures Finalized by Dakotah Obando on 12/19/2024 07:24 PM
[2024-12-19] MEDS: INSULIN DEGLUDEC 5 UNIT/0.05 ML (PER 5 UNITS) SC ×2 (08:17)
[2024-12-19] MEDS: ENOXAPARIN SOD INJ 40 MG/0.4 ML SYRINGE SC (08:18)
[2024-12-19] MEDS: LOSARTAN POTASSIUM 25 MG TABLET 50 MG PO ×2 (08:18→12:24)
[2024-12-19] MEDS: ACETAMINOPHEN 325 MG TABLET 650 MG PO ×2 (08:24→17:43)
--- NOTE | 2024-12-19 10:02 | PC.SS ---
SS met with patient regarding her d/c plan. Pt is alert/oriented. Pt was admitted for Leg Abscess. Pt confirmed demographic and contact information is correct on facesheet. Pt resides alone. Pt ambulates independently without assistance or DME. Pt is ok with all ADLs. 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 Patient?s pharmacy of choice is [facility]. Pt named his sister, Fatmata Mcknight medical decision maker if he is unable. Patient?s choice is to return home upon d/c. Pt states he was informed by physician he is diabetic. Pt states he will establish PCP with Dr. Pérez and will schedule his appointment. Patient's sister will provide transportation. D/C plan: Return home Next of Kin: Fatmata Mcknight, sister, phone# [phone] PCP: Will establish with Dr. Saeed Address: Correct on facesheet
[2024-12-19] MEDS: Magnesium Sulfate 4 GM Ivpb 4 GM/50 ML BAG IV (10:08)
[2024-12-19] MEDS: VANCOMYCIN/D5W 1500 MG IVPB 300 ML 120 MG IV (11:29)
[2024-12-19] MEDS: hydrALAZINE INJ 20 MG/ML VIAL 10 MG IVP (12:24)
--- NOTE | 2024-12-19 13:30 | PD.RESPRO ---
Documentation for date of: 12/19/24 Subjective Subjective Interval history: Patient seen and examined at bedside this morning. Reports that right thigh pain has improved, currently rated 2/10 after receiving ibuprofen and Tylenol. Denies fever, chills, shortness of breath, chest pain, or dizziness. Notes no new drainage from the wound since yesterday. Appetite is good and he is tolerating his carb-consistent diet. Patient understands that IR drainage was postponed today and rescheduled for tomorrow (12/20). Expressed understanding of his new diabetes diagnosis (A1C 12.3) and plans to follow up with his prior primary care provider after discharge. No other complaints voiced at this time. Exam Vital Signs Temp Pulse Resp BP Pulse Ox O2 Del Method 97.0 F 73 18 190/120 H 94 L Room Air 12/19/24 08:00 12/19/24 12:24 12/19/24 08:13 12/19/24 12:24 12/19/24 08:00 12/19/24 08:00 Narrative Exam General: Awake, alert, oriented ?3, non-toxic. Cardiac: RRR, no murmurs. Lungs: Clear to auscultation bilaterally. Abdomen: Soft, non-tender, nondistended. Extremities: Right medial thigh indurated with erythema, no new drainage, mild tenderness, incision clean and covered. No fluctuance. Neuro: Grossly intact. Objective Labs 12/20/24 05:45 12/20/24 05:45 Labs: Laboratory Results - last 24 hr 12/18/24 12/19/24 09:07 04:39 WBC 8.8 RBC 4.76 Hgb 13.9 Hct 41.1 MCV 86 MCH 29.2 MCHC 33.8 RDW Std Deviation 37.3 Plt Count 320 Neut % (Auto) 61 Lymph % (Auto) 21 Shannon % (Auto) 11 Eos % (Auto) 3 Baso % (Auto) 1 Neut # (Auto) 5.3 Lymph # (Auto) 1.9 Shannon # (Auto) 1.0 H Eos # (Auto) 0.3 Baso # (Auto) 0.1 Immature Gran # (Auto) 0.21 H Absolute Nucleated RBC 0.00 Immature Gran % 2 H Nucleated RBC % 0 Sodium 138 Potassium 4.1 Chloride 97 L Carbon Dioxide 33.9 H Anion Gap 7 BUN 8 L Creatinine 0.8 Estim Creat Clear Calc 191.1 eGFR > 60 BUN/Creatinine Ratio 10 L Glucose [address] Glu mg/dL 306 H Hemoglobin A1c 12.3 H Calculated Osmolality 283 Calcium 8.9 Corrected Calcium 9.1 Phosphorus 4.4 Magnesium 1.5 L Total Bilirubin 0.4 AST 16 ALT 21 Alkaline Phosphatase 84 D Total Protein 6.0 Albumin 3.7 Globulin 2.3 Albumin/Globulin Ratio 1.6 Triglycerides 150 Cholesterol 158 LDL Cholesterol, Calc 104 HDL Cholesterol 24 L Cholesterol/HDL Ratio 6.6 Quality Measures Quality Measures none Assessment & Plan Assessment Current Active Medications: Generic Name Dose Route Start Last Admin Trade Name Freq PRN Reason Stop Dose Admin Acetaminophen 650 mg 12/18/24 18:28 12/19/24 08:24 Acetaminophen 325 Mg Tablet PO 01/17/25 18:27 650 mg Q6H PRN Administration Fever >100.4 or Pain 1-10 Hydrocodone Bitart/Acetaminophen 1 tab 12/18/24 18:28 Hydrocodone/Apap 5/325 Tablet PO 12/23/24 18:27 Q6HR PRN PAIN SCALE 4-6(Mod-Sev Dextrose 25 ml 12/18/24 18:11 Dextrose 50%-Water Inj 50 Ml Syringe IV 01/17/25 18:10 Q15MIN PRN BG 50-70 responsive npo pt Dextrose 50 ml 12/18/24 18:11 Dextrose 50%-Water Inj 50 Ml Syringe IV 01/17/25 18:10 Q15MIN PRN BG <50 OR BG <70 & pt unresponsive Enoxaparin Sodium 40 mg 12/19/24 09:00 12/19/24 08:18 Enoxaparin Sod Inj 40 Mg/0.4 Ml Syringe SC 01/02/25 08:59 40 mg QDAY LEV Administration Glucagon 1 mg 12/18/24 18:11 Glucagon Inj 1 Mg Vial IM Q15MIN PRN BG <70, and no IV access Piperacillin/Tazobactam/Dextrose 3.375 gm in 50 mls @ 100 mls/hr 12/18/24 18:28 12/19/24 05:11 Zosyn IV 12/25/24 18:27 100 mls/hr Q6HR LEV Administration Protocol Vancomycin HCl 1,500 mg/ 500 mls @ 200 mls/hr 12/19/24 22:00 Sodium Chloride IV 12/26/24 21:59 BID@1000,2200 [facility] Protocol Insulin Degludec 10 unit 12/19/24 21:00 Insulin Degludec 5 Unit/0.05 Ml (Per 5 Units) SC 01/18/25 20:59 QPM LEV Insulin Human Lispro 0 unit 12/18/24 19:15 12/19/24 11:35 Insulin Lispro (Admelog) 1 Unit/0.01 Ml Unit SC 01/17/25 19:14 4 unit Q6HR LEV Administration Protocol Losartan Potassium 50 mg 12/19/24 09:00 12/19/24 08:18 Losartan Potassium 25 Mg Tablet PO 01/18/25 08:59 50 mg QDAY LEV Administration Morphine Sulfate 2 mg 12/18/24 18:28 Morphine Sulf Inj 4 Mg/Ml Vial IVP 12/23/24 18:27 Q6H PRN PAIN SCALE 7-10 (Severe Ondansetron HCl 4 mg 12/18/24 18:28 Ondansetron Inj 2 Mg/Ml Inj 2 Ml IVP 01/17/25 18:27 Q6H PRN NAUSEA OR VOMITING Protocol Pharmacy Consult 1 each 12/18/24 18:30 12/19/24 12:31 Vancomycin Pharmacy To Dose 1 Each Each IV 01/17/25 18:29 Not Given QDAY [facility] Plan 54-year-old male with history of hypertension and newly diagnosed uncontrolled diabetes mellitus (A1C 12.3) admitted for a large right upper thigh abscess (9.2 ? 2.4 ? 13 cm) secondary to Streptococcus agalactiae, currently stable on IV Zosyn + Vancomycin and awaiting IR drainage tomorrow. #Right leg abscess Patient presented with non-healing right upper leg wound, which is hard, erythematous, and tender. Patient is morbidly obese and also found to have severe hyperglycemia, likely non-healing wound in the setting of uncontrolled diabetes. CT abdomen/pelvis with contrast showed soft tissue focus of infection in the medial upper right thigh, 9.2 x 2.4 x 13 cm. Patient was scheduled for IR abscess drainage today but was rescheduled for tomorrow 12/20/2024 -General surgery consulted and following -Wound care consulted -IR abscess drainage scheduled for 12/20 morning -NPO after midnight -Continue Zosyn 3.375 mg q6h -Continue vancomycin pharmacy to dose -Pain management: Tylenol for mild pain, [place] for moderate pain, morphine for severe pain #Hyperglycemia #Newly diagnosed type 2 diabetes On admission initial glucose 466. A1c 12.3. Last one taken 6.4 in 2019. Patient does not have known history of diabetes. Blood sugar this morning 327 -Bedside blood glucose checks ACHS -Insulin lispro sliding scale step 1, adjusted as necessary -Insulin degludec 10 U HS QPM -Added another 10 of degludec this morning. -Carb consistent low diet -Consulted health care sanitary technician -Diabetes education #Hypertension Likely essential hypertension, patient not on medications. On admission BP 180/103 -Continue losartan 25 mg qday # Hypomagnesemia (1.5) Plan: -Given 4 g IV magnesium sulfate today. -Recheck BMP + Mg in AM. DVT prophylaxis: Lovenox 40 mg subQ GI prophylaxis: Not indicated Diet: Carb consistent low Mead: None Lines: Peripheral IV Antibiotics: Zosyn [12/18/2024- ], vancomycin [12/18/2024- ] CODE STATUS: FULL ----- Plan discussed with attending physician Dr. Carole Person MD PGY-1 Internal Medicine Attending Provider Attestation/Addendum I have examined the patient, reviewed labs and imaging findings, discussed the case with the resident(s), and reviewed entered orders. I agree with the plan of care as outlined in this note, with these additional summaries/recommendations: Patient seen at bedside. No acute overnight events. Patient will go for IR guided drainage of right thigh abscess tomorrow with interventional radiology. CT on admission revealed 9.2 X2.4X 13 cm abscess in right medial upper thigh. Continue IV antibiotics. Follow-up culture results when available. Continue wound care. Patient has new onset diabetes mellitus type 2 with hyperglycemia. Blood sugars were trending in 400s on admission and now improved to 300s. We will continue to adjust basal and bolus insulin. Order diabetic education. Patient has uncontrolled primary hypertension. Started on losartan we will continue to adjust antihypertensive regimen as needed. Patient was counseled that he will need to establish care with outpatient provider for continued management of diabetes and blood pressure. Patient updated on the plan and agreement. All questions answered satisfaction. Please see residents note for additional details and management. Dr. Carole MD
[2024-12-19] MEDS: INSULIN DEGLUDEC 5 UNIT/0.05 ML (PER 5 UNITS) 15 UNIT SC (20:40)
[2024-12-19] MEDS: MORPHINE SULF INJ 4 MG/ML VIAL 2 MG IVP (20:40)
[2024-12-19] MEDS: Vancomycin Inj 1,500 MG in SODIUM CHLORIDE 0.9% 500 ML 500 ML 200 MG IV (21:37)
[2024-12-20] VITALS (12 sets, daily range): BP systolic 136–167; BP diastolic 82–109; PULSE 71–98; RESP 16–96; TEMP 36–36.9; O2SAT 93–97
[2024-12-20] MEDS: PIPER/TAZO 3.375 GM PREMIX 3.375 GM/50 ML BAG IV ×4 (00:24→19:00)
[2024-12-20] MEDS: INSULIN LISPRO (AdmeLOG) 1 UNIT/0.01 ML UNIT SC ×4 (05:44→20:21)
[2024-12-20 06:11] LABS: Basophils # (Auto) 0.1 Thou/mm3 (0.0-0.2); Basophils % (Auto) 1 % (0-2.5); Eosinophils # (Auto) 0.3 Thou/mm3 (0.0-0.5); Eosinophils % (Auto) 4 % (0-10); Hematocrit 42.5 % (41.0-53.0); Hemoglobin 14.5 g/dL (13.5-16.0); Immature Granulocytes Auto 0.26 Thou/mm3 (0.00-0.00); Lymphocytes # (Auto) 2.0 Thou/mm3 (1.0-4.8); Lymphocytes % (Auto) 27 % (10-50); Mean Corpuscular HGB Conc 34.1 g/dl (31.0-37.0); Mean Corpuscular Hemoglobin 29.6 pg (25.0-35.0); Mean Corpuscular Volume 87 fL (80-100); Monocytes # (Auto) 0.7 Thou/mm3 (0.0-0.8); Monocytes % (Auto) 10 % (0-12); Neutrophils # (Auto) 4.1 Thou/mm3 (1.8-7.7); Neutrophils % (Auto) 55 % (37-80); Nucleated Red Blood Cell # 0.00 Thou/mm3 (0.00-0.00); Nucleated Red Blood Cell % 0 /100 WBC (0); Platelet Count 357 Thou/mm3 (140-440); RDW Standard Deviation 37.8 fL (35.1-43.9); Red Blood Count 4.90 Miln/mm3 (4.50-5.90); White Blood Count 7.5 Thou/mm3 (3.8-10.6)
[2024-12-20 06:27] LABS: Alanine Aminotransferase 18 U/L (10-49); Albumin, Serum 3.7 gm/dL (3.5-5.0); Albumin/Globulin Ratio 1.6 (1.2-2.2); Alkaline Phosphatase 77 U/L (46-116); Anion Gap 8 (7-16); Aspartate Amino Transferase 16 U/L (0-34); BUN/Creatinine Ratio 10 Ratio (12-20); Bilirubin,Total 0.4 mg/dL (0.3-1.2); Blood Urea Nitrogen 7 mg/dL (9-23); Calcium 8.4 mg/dL (8.3-10.6); Calcium (Corrected) 8.6 mg/dL (8.5-10.1); Carbon Dioxide 32.9 mMol/L (20.0-31.0); Chloride 98 mMol/L (98-107); Creatinine (Component) 0.7 mg/dL (0.6-1.3); Estimated Creatinine Clearance 216.0 mL/min (>60); Globulin 2.3 gm/dL (2.3-3.5); Glucose 306 mg/dL (74-106); Osmolality,Calculated 287 (275-295); Potassium 3.4 mMol/L (3.4-5.1); Sodium 139 mMol/L (136-145); Total Protein 6.0 gm/dL (5.7-8.2); eGFR > 60 See Note
[2024-12-20] MEDS: LOSARTAN POTASSIUM 25 MG TABLET 50 MG PO ×2 (08:25→16:11)
[2024-12-20] MEDS: ENOXAPARIN SOD INJ 40 MG/0.4 ML SYRINGE SC (08:27)
[2024-12-20 09:41] LABS: Vancomycin,Trough 6.8 mcg/mL (5.0-10.0)
--- NOTE | 2024-12-20 09:46 | XR_ITS ---
EXAMINATION: CT scan right leg without contrast Date and time: December 20, 2024, 1253 hours COMPARISON: December 18, 2024 INDICATIONS: Right thigh abscess FINDINGS: The fluid air collection in the medial thigh is very irregular or serpiginous in contour and not amenable to a CT-guided catheter drainage Impression: The fluid collection in the medial thigh is very irregular or serpiginous angulated in contour and not amenable to a CT-guided catheter drainage
[2024-12-20] MEDS: Vancomycin Inj 2,000 MG in SODIUM CHLORIDE 0.9% 500 ML 500 ML 150 MG IV ×2 (10:48→21:01)
--- NOTE | 2024-12-20 11:27 | PC.SS ---
Rounding: Pending IR drainage, DC plan home
--- NOTE | 2024-12-20 12:07 | PC.NURSE ---
PATIENT ALERT AND ORIENTED X4 TRANSFER VIA GURNEY TO CT.
--- NOTE | 2024-12-20 13:24 | PC.NURSE ---
PATIENT BACK FROM CT, NO I&D PERFORMED NEW IMAGINE SHOWED SMALLER ABSCESS. DR. CALIX MADE AWARE.
--- NOTE | 2024-12-20 13:25 | ESPR_ITS ---
Documentation for date of: 12/20/24 Subjective Subjective Interval history: Patient reports that his right leg pain continues to improve and is now mild. He denies new drainage, pain worsening, or any additional symptoms since yesterday. He expressed feeling relieved after hearing the results of his IR drainage procedure, which went smoothly today. Patient?s anxiety about managing his diabetes and hypertension has decreased after receiving further education. He continues to feel well overall. Exam Vital Signs Temp Pulse Resp BP Pulse Ox O2 Del Method 96.9 F 72 18 136/88 H 96 Room Air 12/20/24 12:00 12/20/24 12:00 12/20/24 12:00 12/20/24 12:00 12/20/24 12:00 12/20/24 12:00 Narrative Exam General: Awake, alert, pleasant, no acute distress. Cardiac: RRR, no murmurs. Lungs: Clear to auscultation bilaterally. Abdomen: Soft, non-tender, nondistended. Extremities: Right upper medial thigh with induration and mild erythema post-IR procedure. No fluctuance, incision clean, dressing intact. Neuro: A&O ?3, no focal deficits. Objective Labs 12/21/24 04:59 12/21/24 04:59 Labs: Laboratory Results - last 24 hr 12/20/24 12/20/24 05:45 08:10 WBC 7.5 RBC 4.90 Hgb 14.5 Hct 42.5 MCV 87 MCH 29.6 MCHC 34.1 RDW Std Deviation 37.8 Plt Count 357 D Neut % (Auto) 55 Lymph % (Auto) 27 [place] % (Auto) 10 Eos % (Auto) 4 Baso % (Auto) 1 Neut # (Auto) 4.1 Lymph # (Auto) 2.0 [place] # (Auto) 0.7 Eos # (Auto) 0.3 Baso # (Auto) 0.1 Immature Gran # (Auto) 0.26 H Absolute Nucleated RBC 0.00 Immature Gran % 4 H Nucleated RBC % 0 Sodium 139 Potassium 3.4 D Chloride 98 Carbon Dioxide 32.9 H Anion Gap 8 BUN 7 L Creatinine 0.7 Estim Creat Clear Calc 216.0 eGFR > 60 BUN/Creatinine Ratio 10 L Glucose 306 H Calculated Osmolality 287 Calcium 8.4 Corrected Calcium 8.6 Total Bilirubin 0.4 AST 16 ALT 18 Alkaline Phosphatase 77 Total Protein 6.0 Albumin 3.7 Globulin 2.3 Albumin/Globulin Ratio 1.6 Vancomycin Trough 6.8 Quality Measures Quality Measures none Assessment & Plan Assessment Current Active Medications: Generic Name Dose Route Start Last Admin Trade Name Freq PRN Reason Stop Dose Admin Acetaminophen 650 mg 12/18/24 18:28 12/19/24 17:43 Acetaminophen 325 Mg Tablet PO 01/17/25 18:27 650 mg Q6H PRN Administration Fever >100.4 or Pain 1-10 Hydrocodone Bitart/Acetaminophen 1 tab 12/18/24 18:28 Hydrocodone/Apap 5/325 Tablet PO 12/23/24 18:27 Q6HR PRN PAIN SCALE 4-6(Mod-Sev Dextrose 25 ml 12/18/24 18:11 Dextrose 50%-Water Inj 50 Ml Syringe IV 01/17/25 18:10 Q15MIN PRN BG 50-70 responsive npo pt Dextrose 50 ml 12/18/24 18:11 Dextrose 50%-Water Inj 50 Ml Syringe IV 01/17/25 18:10 Q15MIN PRN BG <50 OR BG <70 & pt unresponsive Enoxaparin Sodium 40 mg 12/19/24 09:00 12/20/24 08:27 Enoxaparin Sod Inj 40 Mg/0.4 Ml Syringe SC 01/02/25 08:59 40 mg QDAY LEV Administration Glucagon 1 mg 12/18/24 18:11 Glucagon Inj 1 Mg Vial IM Q15MIN PRN BG <70, and no IV access Piperacillin/Tazobactam/Dextrose 3.375 gm in 50 mls @ 100 mls/hr 12/18/24 18:28 12/20/24 05:42 Zosyn IV 12/25/24 18:27 100 mls/hr Q6HR LEV Administration Protocol Vancomycin HCl 2,000 mg/ 500 mls @ 150 mls/hr 12/20/24 10:00 12/20/24 10:48 Sodium Chloride IV 12/27/24 09:59 10 mg/min Q12H LEV 150 mls/hr Protocol Administration 10 MG/MIN Insulin Degludec 26 unit 12/20/24 21:00 Insulin Degludec 5 Unit/0.05 Ml (Per 5 Units) SC 01/19/25 20:59 HS LEV Insulin Human Lispro 0 unit 12/18/24 19:15 12/20/24 05:44 Insulin Lispro (Admelog) 1 Unit/0.01 Ml Unit SC 01/17/25 19:14 3 unit Q6HR LEV Administration Protocol Losartan Potassium 50 mg 12/19/24 09:00 12/20/24 08:25 Losartan Potassium 25 Mg Tablet PO 01/18/25 08:59 50 mg QDAY LEV Administration Morphine Sulfate 2 mg 12/18/24 18:28 12/19/24 20:40 Morphine Sulf Inj 4 Mg/Ml Vial IVP 12/23/24 18:27 2 mg Q6H PRN Administration PAIN SCALE 7-10 (Severe Ondansetron HCl 4 mg 12/18/24 18:28 Ondansetron Inj 2 Mg/Ml Inj 2 Ml IVP 01/17/25 18:27 Q6H PRN NAUSEA OR VOMITING Protocol Pharmacy Consult 1 each 12/20/24 09:38 Vancomycin Pharmacy To Dose 1 Each Each IV 01/17/25 18:29 QDAY PRN PROTOCOL Plan 54-year-old male with hypertension, newly diagnosed type 2 diabetes, and morbid obesity, admitted for right upper thigh abscess, clinically stable after IR drainage, and ready for discharge pending wound care instructions. #Right leg abscess Patient presented with non-healing right upper leg wound, which is hard, erythematous, and tender. Patient is morbidly obese and also found to have severe hyperglycemia, likely non-healing wound in the setting of uncontrolled diabetes. CT abdomen/pelvis with contrast showed soft tissue focus of infection in the medial upper right thigh, 9.2 x 2.4 x 13 cm. 12/20/2024: Abscess clinically stable post-IR drainage. Size has decreased and is draining through the incision. No further procedure required. -General surgery consulted and following -Wound care consulted, pending recs. -Continue Zosyn 3.375 mg q6h -Continue vancomycin pharmacy to dose -Discharge from surgery standpoint after wound care instructions. -Pain management: Tylenol for mild pain, [place] for moderate pain, morphine for severe pain #Hyperglycemia #Newly diagnosed type 2 diabetes On admission initial glucose 466. A1c 12.3. Last one taken 6.4 in 2019. Patient does not have known history of diabetes. Blood sugar this morning 281 -Bedside blood glucose checks ACHS -Insulin lispro sliding scale step 1, adjusted as necessary -Increased insulin degludec to 26 U HS QPM from 15 last night. -Carb consistent low diet -Consulted client operations manager -Diabetes education #Hypertension Likely essential hypertension, patient not on medications. On admission BP 180/103 Latest BP 136/88 mg, Controlled. -Continue losartan 50 qday # Hypomagnesemia Plan: -Given 4 g IV magnesium sulfate on 12/19/2024. -Recheck BMP + Mg in AM. DVT prophylaxis: Lovenox 40 mg subQ GI prophylaxis: Not indicated Diet: Carb consistent low [place]: None Lines: Peripheral IV Antibiotics: Zosyn [12/18/2024- ], vancomycin [12/18/2024- ] CODE STATUS: FULL ----- Plan discussed with attending physician Dr. Lam and senior resident Dr. Payal Person MD PGY-1 Internal Medicine Attending Provider Attestation/Addendum I have examined the patient, reviewed labs and imaging findings, discussed the case with the resident(s), and reviewed entered orders. I agree with the plan of care as outlined in this note, with these additional summaries/recommendations: Patient seen at bedside. No acute overnight events. Patient was evaluated by interventional radiology for abscess drainage but was determined to be small. There does appear to be some spontaneous drainage. Given that patient has received multiple courses of IV antibiotics and drainage, he will remain hospitalized for an additional day of IV antibiotics. CT on admission revealed 9.2 X2.4X 13 cm abscess in right medial upper thigh. Continue wound care. Patient has new onset diabetes mellitus type 2 with hyperglycemia. Blood sugars were trending in 400s on admission and now improved to high 200s. We will continue to adjust basal and bolus insulin. Continue diabetic education. Patient has uncontrolled primary hypertension. Started on losartan we will continue to adjust antihypertensive regimen as needed. Patient was counseled that he will need to establish care with outpatient provider for continued management of diabetes and blood pressure. Patient updated on the plan and agreement. All questions answered satisfaction. Please see residents note for additional details and management. Dr. Carole MD
--- NOTE | 2024-12-20 15:01 | ESPR_ITS ---
Documentation for date of: 12/20/24 Subjective Subjective Brief History: 54M with HTN, DMII, morbid obesity presenting with R thigh abscess. Pt reports feeling pain to the area for the past few days, he underwent bedside I&D in ER on 12/15 and was also given PO antibiotics which he is still taking. Today at work he noticed increased drainage onto his pants prompting him to seek care again in ER where CT showed a fluid collection up to 13cm Narrative: Pt reports feeling better with improved pain, he has noted drainage from the thigh wound. Remaining afebrile with normal WBC Exam Vital Signs Temp Pulse Resp BP Pulse Ox O2 Del Method 96.9 F 72 18 136/88 H 96 Room Air 12/20/24 12:00 12/20/24 12:00 12/20/24 12:00 12/20/24 12:00 12/20/24 12:00 12/20/24 12:00 Constitutional Constitutional: no acute distress Routine Respiratory Exam Respiratory: Present no resp distress Routine Extremities Exam Comments: right medial thigh incision with some induration superiorly but no erythema, no fluctuance, wound probes 6cm deep Results Results: Laboratory Laboratory results: results reviewed Results: Imaging CT scan - pelvis: report reviewed and image reviewed Assessment & Plan Plan 54M with HTN, DMII, morbid obesity presenting with R thigh abscess s/p I&D in ER on 12/15 which I extended on 12/18 with minimal purulent output. Given the depth of abscess I requested IR evaluation but abscess was determined to be too serpiginous and has also decreased in size since prior CT. This decrease in size indicates that the abscess is being drained through the incision and pt is doing clinically well so I do not recommend any further procedure, will repack the incision and donor support technician will kindly instruct pt's friend as to how to pack the incision daily OK for dc from my standpoint after wound care instructions
[2024-12-20] MEDS: ACETAMINOPHEN 325 MG TABLET 650 MG PO (16:13)
--- NOTE | 2024-12-20 19:28 | PC.NURSE ---
dr davalos notified of pts BP being high at 188/107 and 170/117 HR 81 pt is asymptomatic with no complaints. Dr states he will take a look at the chart.
--- NOTE | 2024-12-20 19:56 | PC.NURSE ---
spoke to dr davalos regarding update on blood pressure medication, amlodipine 5mgpo was ordered for 2100 dr to give that medication. No other medications ordered at this time.
[2024-12-20] MEDS: INSULIN DEGLUDEC 5 UNIT/0.05 ML (PER 5 UNITS) 26 UNIT SC (20:22)
[2024-12-20] MEDS: HYDROcodone/APAP 5/325 TABLET 1 TAB PO (21:55)
[2024-12-21] VITALS: BP 161/96; PULSE 72; RESP 18; TEMP 36.3; O2SAT 95
[2024-12-21] MEDS: PIPER/TAZO 3.375 GM PREMIX 3.375 GM/50 ML BAG IV ×2 (00:28→05:20)
[2024-12-21 04:00] VITALS: BP 129/84; PULSE 68; RESP 17; TEMP 36.1; O2SAT 96
[2024-12-21 06:06] LABS: Basophils # (Auto) 0.1 Thou/mm3 (0.0-0.2); Basophils % (Auto) 1 % (0-2.5); Eosinophils # (Auto) 0.3 Thou/mm3 (0.0-0.5); Eosinophils % (Auto) 4 % (0-10); Hematocrit 43.7 % (41.0-53.0); Hemoglobin 14.7 g/dL (13.5-16.0); Immature Granulocytes Auto 0.32 Thou/mm3 (0.00-0.00); Lymphocytes # (Auto) 2.0 Thou/mm3 (1.0-4.8); Lymphocytes % (Auto) 24 % (10-50); Mean Corpuscular HGB Conc 33.6 g/dl (31.0-37.0); Mean Corpuscular Hemoglobin 29.6 pg (25.0-35.0); Mean Corpuscular Volume 88 fL (80-100); Monocytes # (Auto) 0.7 Thou/mm3 (0.0-0.8); Monocytes % (Auto) 8 % (0-12); Neutrophils # (Auto) 5.0 Thou/mm3 (1.8-7.7); Neutrophils % (Auto) 59 % (37-80); Nucleated Red Blood Cell # 0.00 Thou/mm3 (0.00-0.00); Nucleated Red Blood Cell % 0 /100 WBC (0); Platelet Count 341 Thou/mm3 (140-440); RDW Standard Deviation 38.5 fL (35.1-43.9); Red Blood Count 4.96 Miln/mm3 (4.50-5.90); White Blood Count 8.4 Thou/mm3 (3.8-10.6)
[2024-12-21 06:44] LABS: Alanine Aminotransferase 16 U/L (10-49); Albumin, Serum 3.8 gm/dL (3.5-5.0); Albumin/Globulin Ratio 1.6 (1.2-2.2); Alkaline Phosphatase 71 U/L (46-116); Anion Gap 8 (7-16); Aspartate Amino Transferase 18 U/L (0-34); BUN/Creatinine Ratio 7 Ratio (12-20); Bilirubin,Total 0.5 mg/dL (0.3-1.2); Blood Urea Nitrogen 5 mg/dL (9-23); Calcium 8.6 mg/dL (8.3-10.6); Calcium (Corrected) 8.8 mg/dL (8.5-10.1); Carbon Dioxide 33.1 mMol/L (20.0-31.0); Chloride 100 mMol/L (98-107); Creatinine (Component) 0.7 mg/dL (0.6-1.3); Estimated Creatinine Clearance 206.4 mL/min (>60); Globulin 2.4 gm/dL (2.3-3.5); Glucose 248 mg/dL (74-106); Magnesium 1.8 mg/dL (1.6-2.6); Osmolality,Calculated 286 (275-295); Potassium 3.7 mMol/L (3.4-5.1); Sodium 141 mMol/L (136-145); Total Protein 6.2 gm/dL (5.7-8.2); eGFR > 60 See Note
[2024-12-21 07:12] VITALS: PULSE 55; RESP 20; RESP 94
[2024-12-21 07:50] VITALS: BP 156/97; PULSE 76; RESP 20; TEMP 36.4; O2SAT 96
[2024-12-21] MEDS: INSULIN LISPRO (AdmeLOG) 1 UNIT/0.01 ML UNIT SC ×2 (07:50→11:22)
[2024-12-21] MEDS: ENOXAPARIN SOD INJ 40 MG/0.4 ML SYRINGE SC (08:53)
[2024-12-21 08:54] VITALS: BP 156/97; PULSE 76
[2024-12-21] MEDS: LOSARTAN POTASSIUM 25 MG TABLET 100 MG PO (08:54)
[2024-12-21] MEDS: HYDROcodone/APAP 5/325 TABLET 1 TAB PO (09:02)
[2024-12-21] MEDS: Vancomycin Inj 2,000 MG in SODIUM CHLORIDE 0.9% 500 ML 500 ML 150 MG IV (10:16)
--- NOTE | 2024-12-21 10:28 | ESDS_ITS ---
Planned Discharge Date 12/21/24 DS: Providers Provider Date of admission: 12/18/24 18:08 Primary care physician: Physician No Primary/Family Admitting Provider: Paresh Mariscal MD Attending Provider on Admission: Delio Lam MD Consults: 12/18/24 18:12 Referral Registered Dietitian Routine Comment: 12/18/24 18:33 Consult to General Surgery Routine Comment: Right leg abscess Consulting Provider: Kathie Chirinos 12/18/24 18:34 Referral Wound Care Stat Comment: 12/20/24 16:00 Referral OP Wound Healing Dept Routine Comment: Right thigh abscess s/p I&D Attending Provider on DC: Delio Lam MD Discharging Provider: Aguilar Person MD DS: Diagnosis Problem List Completed Was Problem List Reviewed/Reconciled?: Yes Hospital Course Hospital Course Hospital course: Mr. Zuniga is a 54-year-old male with a history of hypertension and newly diagnosed type 2 diabetes, was admitted for a right upper thigh abscess. The abscess was initially drained in the ER on 12/15/2024, with minimal output, and further debridement was performed on 12/18/2024. Despite some ongoing drainage, the abscess decreased in size and the infection improved. IR evaluation was performed and determined the abscess was sufficiently drained. The patient?s blood pressure was elevated on admission, but was well-controlled after an increase in Losartan 100 mg and initiation of Amlodipine 5 mg nightly. The patient's blood glucose levels were elevated, but insulin therapy was adjusted with Degludec 30 units nightly and Metformin 750 mg BID to help improve control. The patient was clinically stable and cleared for discharge with wound care instructions. He was instructed to follow up with his primary care provider and wound care center. Discharge Diagnoses: #Right upper thigh abscess #Type 2 diabetes mellitus, newly diagnosed #Hypertension Discharge instructions: -Medication: * Take Losartan 100 mg daily for blood pressure control. * Amlodipine 5 mg nightly for blood pressure control. * Degludec 30 units nightly (insulin) for diabetes. * Metformin 750 mg BID (with meals) for diabetes. * Augmentin 875 mg BID for 5 more days for wound antibiotic. -Wound care: * Pack wound once daily with packing strips * Cover with gauze, keep dry * Call doctor/ER if: * Increased redness, swelling, fever, or pus * Severe pain, worsening drainage * Wound Care Center: Referral placed -Follow-up: * With primary care within a week for hypertension and diabetes management. * Wound care center. -Activity: * Walk as tolerated * Avoid heavy lifting until wound healed -Diet: * Carb-consistent diet * Avoid sugary foods, focus on lean protein and veggies * Carry snacks, and take if your blood sugar drops below 70 or if you feel shaky or dizzy. ----- Plan discussed with attending physician Dr. Carole Person MD PGY-1 Internal Medicine Time Spent with Patient Time attestation: Total time spent providing and/or coordinating discharge services: Time spent: Greater than 30 minutes Exam Vital Signs Temp Pulse Resp BP Pulse Ox O2 Del Method 97.6 F 76 20 156/97 H 96 Room Air 12/21/24 07:50 12/21/24 08:54 12/21/24 07:50 12/21/24 08:54 12/21/24 07:50 12/21/24 07:50 Discharge Plan Plan Patient Disposition: HOME (Self Care) Patient condition on transfer: Stable Care Plan Goals: Discharge instructions: -Medication: * Take Losartan 100 mg daily for blood pressure control. * Amlodipine 5 mg nightly for blood pressure control. * Degludec 30 units nightly (insulin) for diabetes. * Metformin 750 mg BID (with meals) for diabetes. * Augmentin 875 mg BID for 5 more days for wound antibiotic. -Wound care: * Wound care to be done daily and as needed for soiling or falling off. May shower before dressing change. * Wash hands, remove dressing and packing. Clean/Irrigate with wound with saline and pat dry. Wash hands again. Cut strip to length leaving a tail to grab so the strip does not get lost within the wound. Using a q-tip, pack the wound ensuring the strip reaches the full depth of the wound and leave a tail out. Cover with gauze or the absorbent pad and secure with tape. Dispose of dirty items and wash hands a final time. Keep dressing clean and dry. Keep supplies stored in a clean area. * Call doctor/ER if: * Increased redness, swelling, fever, or pus * If active bleeding occurs, apply tight dressing and return to MD or ER.? * Monitor for Fever above 100.6? F, Increased pain, ? Increase swelling, Red streaks around your wound, Drainage becomes foul smelling or changes color, The wound is larger or deeper, The wound looks dried out or dark, ?? Bleeding that does not stop with holding pressure. If symptoms occur return to ED * Severe pain, worsening drainage * Follow up with [facility]: [address] [place] [address]. [facility]All [phone] for appointment. -Follow-up: * With primary care within a week for hypertension and diabetes management. * Wound care center. -Activity: * Walk as tolerated * Avoid heavy lifting until wound healed -Diet: * Carb-consistent diet * Avoid sugary foods, focus on lean protein and veggies * Carry snacks, and take if your blood sugar drops below 70 or if you feel shaky or dizzy. Prescriptions/Referrals Prescriptions/Med Rec: New losartan 100 mg tablet 100 mg PO QDAY 30 Days Qty: 30 2RF amlodipine 5 mg Tablet 5 mg PO HS 30 Days Qty: 30 2RF insulin degludec 100 unit/mL (3 mL) insulin pen 30 unit subcut HS Qty: 15 3RF metformin 750 mg tablet extended release 24 hr 750 mg PO BID 30 Days Qty: 60 2RF amoxicillin-pot clavulanate 875-125 mg tablet 1 tab PO BID 5 Days Qty: 10 0RF (DME) pen needle, diabetic [Comfort EZ Pen [place]] 31 gauge x 1/4 needle See Rx Instructions .Route Qty: 100 2RF Rx Instructions: As directed Discontinued ibuprofen 400 mg Tablet 400 mg PO DAILY enalapril maleate [Vasotec] 2.5 mg tablet 2.5 mg PO QDAY Qty: 30 0RF cephalexin 500 mg capsule 500 mg PO Q6H 10 Days Qty: 40 0RF Referrals: No Primary/Family,Physician [Primary Care Provider] Patient/Caregiver Discharge Instructions Discharge Activity: activity as tolerated Education Materials: Nutrition Facts Labels and Diabetes, Nutrition for Wound Healing, Insulin How to Use and Where to Inject, Types of Insulin, Healthy Meals for Diabetes, Abscess Drainage, Hypertension Dc, Discharge Instructions Wound ..., Managing Diabetes: The A1C Test, Preventing Surgical Site Infections, Blood Pressure Check Steps, Insulin Injection Steps, Insulin Pen Clear Insulin Steps, ED Cellulitis, ED Diabetes- Overview, ED Diabetic Foot Care, Facts About Diabetes, Type 2 Diabetes Print Language: Ghanaian Stand Alone Forms: Deborah Award Info., Patient Portal Info Letter Discharge Order Discharge Orders: Discharge (Routine); Ordered 12/21/24 Ordered By: Aguilar Person Quality Discharge Quality Measures VTE prophylaxis MD Attestestation MD Attestation I have examined the patient, reviewed labs and imaging findings, discussed the case with the resident(s), and reviewed entered orders. I agree with the plan of care as outlined in this note. Time Spent: [address] Carole MD
[2024-12-21 11:42] VITALS: BP 138/93; PULSE 65; RESP 18; TEMP 35.7; O2SAT 95
== END 2024-12-21 12:12 | disposition home or self-care (01) | DRG 603 ==
LOC: SERX 17:51 → SERHOLD 18:37 → S3NX 20:44
PROVIDERS: Nurse Practitioner Family; Student in an Organized Health Care Education/Training Program; Admitting Provider Internal Medicine; Emergency Provider Emergency Medicine; Visit Provider Student in an Organized Health Care Education/Training Program
DX: L02.415 Cutaneous abscess of right lower limb (principal); E87.1 Hypo-osmolality and hyponatremia; Z68.43 Body mass index [BMI] 50.0-59.9, adult; E11.65 Type 2 diabetes mellitus with hyperglycemia; I10 Essential (primary) hypertension; R74.8 Abnormal levels of other serum enzymes; E83.42 Hypomagnesemia; E66.01 Morbid (severe) obesity due to excess calories; Z79.4 Long term (current) use of insulin; Z79.84 Long term (current) use of oral hypoglycemic drugs; Z79.899 Other long term (current) drug therapy
CPT/HCPCS: 36415; 73700; 74177; 80053; 80061; 80202; 81001; 83036; 83690; 83735; 84100; 85025; 93306; 96365; 96375; 96376; 99283; A4649; J0360; J1650; J1815; J2270; J2543; J3373; J3374; J3475; J7999; Q9967; A9270

== ENCOUNTER → 2024-12-26 | Outpatient (CLI) | payer BC, SELFPAY | END | disposition home or self-care (01) | LOC: SWHD 12:35 | PROVIDERS: PCP Family Medicine; Referring Provider Family Medicine; Visit Provider Student in an Organized Health Care Education/Training Program | DX: L02.818 Cutaneous abscess of other sites (principal); S71.101A Unspecified open wound, right thigh, initial encounter; X58.XXXA Exposure to other specified factors, initial encounter; I10 Essential (primary) hypertension; E11.69 Type 2 diabetes mellitus with other specified complication; Z79.4 Long term (current) use of insulin | CPT/HCPCS: 99213; A9270; G0463 ==

== ENCOUNTER → 2025-01-02 | Outpatient (CLI) | payer BC, SELFPAY | END | disposition home or self-care (01) | LOC: SWHD 14:58 | PROVIDERS: PCP Family Medicine; Referring Provider Family Medicine; Visit Provider Student in an Organized Health Care Education/Training Program | DX: L02.818 Cutaneous abscess of other sites (principal); S71.101A Unspecified open wound, right thigh, initial encounter; X58.XXXA Exposure to other specified factors, initial encounter; I10 Essential (primary) hypertension; E11.69 Type 2 diabetes mellitus with other specified complication | CPT/HCPCS: 99212; G0463 ==

== ENCOUNTER → 2025-01-09 | Outpatient (CLI) | payer BC, SELFPAY | END | disposition home or self-care (01) | PROVIDERS: PCP Family Medicine; Referring Provider Family Medicine; Visit Provider Student in an Organized Health Care Education/Training Program | DX: L02.818 Cutaneous abscess of other sites (principal); S71.101A Unspecified open wound, right thigh, initial encounter; X58.XXXA Exposure to other specified factors, initial encounter; I10 Essential (primary) hypertension; E11.69 Type 2 diabetes mellitus with other specified complication; Z79.4 Long term (current) use of insulin | CPT/HCPCS: 99212; G0463 ==

== ENCOUNTER → 2025-01-16 | Outpatient (CLI) | payer BC, SELFPAY | END | disposition home or self-care (01) | LOC: SWHD 14:46 | PROVIDERS: PCP Family Medicine; Referring Provider Family Medicine; Visit Provider Student in an Organized Health Care Education/Training Program | DX: L02.818 Cutaneous abscess of other sites (principal); S71.101A Unspecified open wound, right thigh, initial encounter; X58.XXXA Exposure to other specified factors, initial encounter; I10 Essential (primary) hypertension; E11.69 Type 2 diabetes mellitus with other specified complication; Z79.4 Long term (current) use of insulin | CPT/HCPCS: 99213; A9270; G0463 ==

== ENCOUNTER → 2025-01-30 | Outpatient (CLI) | payer BC, SELFPAY | END | disposition home or self-care (01) | LOC: SWHD 14:43 | PROVIDERS: PCP Family Medicine; Referring Provider Family Medicine; Visit Provider Surgery | DX: L02.818 Cutaneous abscess of other sites (principal); S71.101A Unspecified open wound, right thigh, initial encounter; X58.XXXA Exposure to other specified factors, initial encounter; I10 Essential (primary) hypertension; E11.69 Type 2 diabetes mellitus with other specified complication; Z79.84 Long term (current) use of oral hypoglycemic drugs | CPT/HCPCS: 99212; A9270; G0463 ==